=== PATIENT | male | born 1960 | race Caucasian/White ===

== ENCOUNTER 2017-08-05 14:45 | Emergency (ER) | payer OTHER ==
[~2017-08-05] VITALS: Ht 171.4 cm; Wt 97.7 kg
[2017-08-05 14:51] VITALS: BP 145/62; PULSE 80; RESP 17; O2SAT 94
[2017-08-05 15:09] LABS: BASOPHILS % (AUTO) 0.2 % (0-3); EOSINOPHILS % (AUTO) 2.2 % (0-5); MONOCYTES % (AUTO) 9.2 % (4-12); Mean Corpuscular Hemoglobin 28.7 pg (27.0-35.0); Mean Corpuscular Volume 82.5 fL (81-100); NEUTROPHILS % (AUTO) 51.3 % (40-74); Platelet Count 256 bil/L (150-400)
[2017-08-05 15:25] LABS: INR 1.05 ratio
--- NOTE | 2017-08-05 15:28 | ED.REPORT ---
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 He states that he was also wheezing, and had to lay down because he felt like he would pass out. Associated symptoms include a recent cough. He adamantly denies chest pain or tightness, fever, chills, nausea , vomiting, or LE swelling. The pt usually only pushes carts for about half an hour when they need extra help, but he is usually able to with no problems. He reports to EMS that 3 weeks ago he had an episode of severe chest pain, and did not seek care for it. He denies any similar symptoms today. Pt was diagnosed with asthma 17 years ago and has used MaxAir a couple years ago, but has not used an inhaler since. He last saw a PCP 3 years ago after he moved here from [place]. Nursing Notes Stated Complaint: DIZZINESS Chief Complaint: Chest Pain Nursing Notes Reviewed: Yes Allergies: Coded Allergies: morphine (Verified Allergy, Severe, "my body shuts down", 04/29/15) iodine (Verified Allergy, Intermediate, rash, 04/29/15) Scheduled PRN Albuterol Sulfate (Ventolin HFA Inhaler) 200 Puff/18 Gm Inhaler 1 PUFF INH Q4 PRN PRN For Wheezing General Time Seen by MD: 14:54 Chief Complaint Shortness of breath Hx Obtained From: Patient, EMS Arrived By: Ambulance Sudden in Onset?: Yes Onset Occurred: Just prior to arrival Symptom Duration: 1 - 15 minutes Severity: Current: No pain currently Severity: Maximum: No pain Recent Healthcare: No recent doctor visit, No recent hospitalization Similar Sx Previous: No Past Medical History Past Medical History Asthma Past Surgical History Carpal tunnel knee surgery Family History Mother had DVTand PE after knee surgery Smoking History Never Smoker Social History Alcohol Use: Denies alcohol use Drug Use: Denies drug use Other Social History: Local resident Ambulatory Status Independent Review of Systems Constitutional: Denies: Chills, Fever Respiratory: Reports: Non-productive cough, Shortness of breath, Wheezing Cardiovascular: Denies: Chest pain Musculoskeletal: Denies: Extremity swelling Complete sys rev & neg: except as marked. GI: Denies: Nausea, Vomiting Neurologic: Reports: Lightheaded Physical Exam Initial Vital Signs Vital Signs (First) Date Time Temp Pulse Resp B/P Pulse Ox O2 Delivery O2 Flow Rate FiO2 08/05/17 14:51 36.8 80 17 145/62 94 Room Air Initial VS: Reviewed Head / Eyes: Atraumatic, Normocephalic, PERRL ENT: Mucous membranes moist, Conjunctiva normal, No scleral icterus Abdomen / GI: Soft, Non-tender, No guarding, No rebound, No distention Extremities: Vascular intact, Neuro intact, No swelling, No tenderness Skin: Warm, Dry, No cyanosis Neurologic: Alert, Oriented, Nonfocal Psychiatric: Mood/affect normal, Behavior normal, Normal thought content General/Constitutional: Awake, Alert, No acute distress Neck: Atraumatic, Supple, No meningismus, Full range of motion Respiratory / Chest: Breath sounds NL, Breath sounds = bilat, No respiratory distress, No rales, No rhonchi, No wheezing, No retractions, No stridor Cardiovascular: Heart rate NL, Regular rhythm, Heart sounds NL, Peripheral circulation NL Interpretation & Diagnostics Lab Results Interpretation Result Diagram: 08/05/17 1506 08/05/17 1506 Test 08/05/17 15:06 White Blood Count 8.2th/mm3 (3.8-10.1) Red Blood Count 5.50mil/mm3 (4.40-5.80) Hemoglobin 15.8g/dL (13.8-17.2) Hematocrit 45.4% (41.0-50.0) Mean Corpuscular Volume 82.5fL (81-100) Mean Corpuscular Hemoglobin 28.7pg (27.0-35.0) Mean Corpuscular Hemoglobin Concent 34.8% (32.0-37.0) Red Cell Distribution Width 13.3% (12.3-15.4) Platelet Count 256bil/L (150-400) Neutrophils (%) (Auto) 51.3% (40-74) Lymphocytes (%) (Auto) 36.9% (14-46) Monocytes (%) (Auto) 9.2% (4-12) Eosinophils (%) (Auto) 2.2% (0-5) Basophils (%) (Auto) 0.2% (0-3) Prothrombin Time 11.2sec (8.1-12.5) Prothromb Time International Ratio 1.05ratio Sodium Level 138mEq/L (134-144) Potassium Level 3.8mEq/L (3.5-5.2) Chloride Level 100mEq/L (97-108) Carbon Dioxide Level 22mmol/L (18-29) Blood Urea Nitrogen 12mg/dL (6-24) Creatinine 1.05mg/dL (0.76-1.27) Estimat Glomerular Filtration Rate 78mL/min (>59) Glucose Level 86mg/dL (60-99) Calcium Level 9.1mg/dL (8.5-10.1) Magnesium Level 1.9mg/dL (1.6-2.6) Total Bilirubin 0.8mg/dL (0.0-1.2) Aspartate Amino Transf (AST/SGOT) 34U/L (0-50) Alanine Aminotransferase (ALT/SGPT) 31U/L (0-44) Alkaline Phosphatase 96U/L (25-150) Troponin T < 0.010ug/L (0.0-0.011) Pro-B-Type Natriuretic Peptide 5.43pg/mL (0-210) Total Protein 8.3g/dL (6.4-8.4) Albumin 4.3g/dL (3.4-5.0) ECG Interpretation Time: 15:02 Interpreted by: ED physician Normal ECG Interpretation: Normal ECG w/ rate of... (76), Normal rate, Normal sinus rhythm X-Ray Chest Interpretation Chest Xray Interpretation: RADIOLOGIST: IMPRESSION: No acute cardiopulmonary disease process. Dictated by: Nola Small MD, PhD on 08/05/2017 at 15:28 WET READ: Xray is limited by poor inspiration View: Portable, 1 view Interpretation / Wet Read by: Wet read ED physician, Interpret - Radiologist Re-Eval/Medical Decision Med Decision/Clinical Course 56 year old m with acute SOB while exerting himself outside, resolved without treatment. He has no signs of heart failure, he did not have any chest pain today, I have a very low concern that this represents an acute coronary event. His EKG and troponin were normal, and he has minimal to no risk factors for coronary artery disease. He reports a history of a diagnosis of asthma and is possible that that was what occurred today although he has no wheezing on my physical exam. He does not have any signs or symptoms of pulmonary embolus. I discussed with him the importance of returning to the emergency department if he has chest pain as he did one month ago, as well as the importance of following up with primary care doctor. He is accompanied by a coworker who reports as does the patient that he will be fine to have light duty and not exert himself strenuously as he did today going forward. Re-Evaluation/Progress #1: Time of Eval: 16:43 Patient Status: Condition improved Re-Evaluation/Progress Note: Discussed EKG, lab and x ray results and plan for discharge. Pt understands and agrees with plan. Pt reports that a month ago, he had an episode of chest pain. Advised the pt to follow up with a primary care doctor and return to the emergency department if chest pain occurs again. Re-Evaluation/Progress #2: Time of Eval: 17:31 Patient Status: Condition improved Re-Evaluation/Progress Note: Pt is ambulatory with no shortness of breath. Counseled Regarding: Diagnosis, Lab results, Need for follow-up, When/why to return to ED Discharge & Departure Impression: Primary Impression: Shortness of breath Disposition: Home Discharge Condition All VS Reviewed: Yes Condition: Improved Patient Instructions: Shortness of Breath (ED) Additional Instructions: Thank you for entrusting us with your care today. No dangerous cause for your symptoms was identified today. Your chest x ray, EKG and labs were all reassuring. It is possible you could have had an asthma, we will give you an inhaler to try next time it happens. I would recommend light duty at work until you see a primary care doctor. Follow up with Dr. Last as soon as possible. Return to the ER if you develop any new or worsening symptoms such as any chest pain, shortness of breath, headache, numbness, weakness, fever, chills, nausea or vomiting. Referrals: Veena Last PA-C Attestation Portions of this note were transcribed by Monalisa Barriga. I, Dr. Mccormick personally performed the history, physical exam and medical decision-making; I reviewed and confirmed the accuracy of the information in the transcribed note. Signed by: Chetan Suarez, 08/05/2017. copies to: Veena Last PA-C, Sarah C MD Aug 05, 2017 15:28 MONALISA BARRIGA Aug 05, 2017 15:35
--- NOTE | 2017-08-05 15:30 | DRSVH ---
PROCEDURE: X-RAY CHEST ONE VIEW, PORTABLE ([id number]) INDICATIONS: sob TECHNIQUE: One view of the chest was acquired. COMPARISON: None. FINDINGS: Surgical changes and devices: None. Lungs and pleura: No pleural effusions or pneumothorax. Lungs are clear. Mediastinum: Mediastinal contours appear normal. Heart size is normal. Bones and chest wall: No suspicious bony lesions. Overlying soft tissues appear unremarkable. IMPRESSION: No acute cardiopulmonary disease process. Dictated by: Nola Small MD, PhD on 08/05/2017 at 15:28 Approved by: Nola Small MD, PhD on 08/05/2017 at 15:28
[2017-08-05 15:33] LABS: TROPONIN T < 0.010 ug/L (0.0-0.011)
[2017-08-05 15:43] LABS: Magnesium 1.9 mg/dL (1.6-2.6)
[2017-08-05 17:33] VITALS: BP 126/59; PULSE 72; RESP 18; O2SAT 95
[2017-08-05 17:34] VITALS: BP_SYST 128; BP_SYST 129; BP_DIAS 69; BP_DIAS 71; PULSE 75; PULSE 81
[2017-08-05] MEDS ORDERED: ALBU18HF INH (17:34)
== END 2017-08-05 17:53 | disposition home or self-care (01) ==
LOC: SED 14:45
DX: R06.02 Shortness of breath (principal); R42 Dizziness and giddiness; R05 Cough; J45.909 Unspecified asthma, uncomplicated; Z98.890 Other specified postprocedural states; Z88.5 Allergy status to narcotic agent; Z88.8 Allergy status to other drugs, medicaments and biological substances